=== PATIENT | female | born 1990 | race Hispanic/Latino ===

== ENCOUNTER 2022-09-02 19:38 | Emergency (ER) | payer BC, OTHER ==
[~2022-09-02] VITALS: Ht 170.2 cm; Wt 77.6 kg
[2022-09-02 22:28] VITALS: BP 126/88
== END 2022-09-02 22:29 | disposition home or self-care (01) ==
LOC: EDH 19:38
DX: L02.412 Cutaneous abscess of left axilla (principal); Z90.49 Acquired absence of other specified parts of digestive tract
CPT/HCPCS: 10060; 99282

== ENCOUNTER 2023-11-11 07:42 | Emergency (ER) | payer BC ==
[~2023-11-11] VITALS: Ht 170.2 cm; Wt 78.5 kg
[2023-11-11 08:44] LABS: APPEARANCE,URINE CLOUDY (CLEAR); BILIRUBIN,URINE NEGATIVE (NEGATIVE); COLOR,URINE LIGHT-YELLOW (YELLOW); GLUCOSE, URINE (UA) NEGATIVE (NEGATIVE); KETONES,URINE NEGATIVE (NEGATIVE); LEUKOCYTE ESTERASE ,URINE 250 Leu/uL (NEGATIVE); NITRATE,URINE NEGATIVE (NEGATIVE); OCCULT BLOOD,URINE NEGATIVE (NEGATIVE); PROTEIN,URINE NEGATIVE (NEGATIVE); UROBILINOGEN,URINE 0.2 mg/dL (0.2-1.0)
[2023-11-11 08:50] LABS: ADD UA MICROSCOPIC YES
[2023-11-11 08:54] LABS: BACTERIA,URINE FEW /HPF (None Seen); MUCUS,URINE RARE LPF (None Seen); RBC,URINE 0-1 /HPF (0-1); SQUAMOUS EPITHELIAL CELL,UR MANY /HPF (0-2)
[2023-11-11 08:57] LABS: HEMATOCRIT 37.4 % (36-48); MEAN CORPUSCULAR HEMOGLOBIN 25.6 pg (27.0-33.0); MEAN CORPUSCULAR HGB CONC 32.9 g/dL (32.0-36.0); MEAN CORPUSCULAR VOLUME 77.8 fL (79-99); PLATELET COUNT (AUTO) 373 K/uL (130-400); RED BLOOD CELL COUNT(AUTO) 4.81 MIL/uL (4.00-5.50); RED CELL DISTRIBUTION WIDTH 17.4 % (11.0-15.5); WHITE BLOOD COUNT (AUTO) 9.2 K/uL (4.8-10.8)
[2023-11-11 09:10] LABS: BILIRUBIN,DIRECT 0.2 mg/dL (0.0-0.3)
[2023-11-11 09:12] LABS: ALBUMIN 3.7 g/dL (3.5-5.0); BILIRUBIN,TOTAL 0.9 mg/dL (0.2-1.0); CREATININE 0.7 mg/dL (0.5-1.5); TOTAL PROTEIN, SERUM 7.7 g/dL (6.0-8.3)
[2023-11-11 09:15] LABS: RAPID GROUP A STREP positive (NEGATIVE)
[2023-11-11 09:20] LABS: EOSINOPHILS % (MANUAL) 1 % (1-6); LYMPHOCYTES % (MANUAL) 14 % (22-44); MAN.DIFF COMMENT-IMPRESSION MANUAL DIFFERENTIAL; MONOCYTES % (MANUAL) 5 % (2-9); PLATELET MORPHOLOGY COMMENT ADEQUATE; SEGMENTED NEUTROPHILS % 80 % (40-70); TOTAL CELLS COUNTED 100
[2023-11-11 09:21] LABS: INFLUENZA TYPE A Negative For Type A (NEGATIVE); INFLUENZA TYPE B Negative For Type B (NEGATIVE)
[2023-11-11 09:25] LABS: COVID19 (SARS ANTIGEN RAPID) PRESUMPTIVE NEGATIVE (NEGATIVE)
[2023-11-11] MEDS: CEFTRIAXONE 2GM VIAL IVPB ONE (09:29)
[2023-11-11] MEDS: 0.9%NACL 1000ML 1,848 ML IV ONE (09:29)
[2023-11-11] MEDS: FAMOTIDINE 20MG VIAL IV ONE (09:30)
[2023-11-11] MEDS: ONDANSETRON 4MG INJ IVP ONE (09:30)
[2023-11-11] MEDS ORDERED: CEPH500T PO (09:35)
[2023-11-11] MEDS ORDERED: PHEN-847 PO (09:35)
[2023-11-11 09:41] VITALS: BP 141/85; PULSE 85; RESP 18; O2SAT 97
== END 2023-11-11 11:40 | disposition home or self-care (01) ==
LOC: EDH 07:42
DX: I16.0 Hypertensive urgency (principal); J02.0 Streptococcal pharyngitis; N39.0 Urinary tract infection, site not specified; Z90.49 Acquired absence of other specified parts of digestive tract; Z20.822 Contact with and (suspected) exposure to COVID-19
CPT/HCPCS: 99284; 96365; 96375; 87426; 82248; 82550; 80053; 84703; 83690; 85025; 87040 ×2; 87088; 87880; 87804 ×2; 81001; 36415; J3490; J7030; J0696; J2405